=== PATIENT | female | born 1965 | race Caucasian/White ===

== ENCOUNTER → 2020-06-13 | Outpatient (CLI) | payer OTHER | LOC: LAB 17:53 | DX: I12.9 Hypertensive chronic kidney disease with stage 1 through stage 4 chronic kidney disease, or unspecified chronic kidney disease (principal); N18.4 Chronic kidney disease, stage 4 (severe); N39.0 Urinary tract infection, site not specified; Z94.0 Kidney transplant status; E78.5 Hyperlipidemia, unspecified; Z79.899 Other long term (current) drug therapy; M10.9 Gout, unspecified; Q87.81 Alport syndrome | CPT/HCPCS: 81001; 87077; 87086; 87186 ==

== ENCOUNTER → 2020-09-02 | Outpatient (CLI) | payer MEDICARE | LOC: LAB 10:08 | PROVIDERS: Internal Medicine Nephrology | DX: Z48.22 Encounter for aftercare following kidney transplant (principal); Z79.899 Other long term (current) drug therapy | CPT/HCPCS: 36415; 80069 ==

== ENCOUNTER → 2020-09-05 | Outpatient (CLI) | payer MEDICARE ==
[2020-09-05 18:23] LABS: BUN/CREATININE RATIO 15 (0-10)
== END ==
LOC: LAB 16:13
PROVIDERS: Internal Medicine
DX: Z48.22 Encounter for aftercare following kidney transplant (principal); Z94.0 Kidney transplant status; Z79.899 Other long term (current) drug therapy
CPT/HCPCS: 36415; 80069

== ENCOUNTER → 2021-03-03 | Outpatient (CLI) | payer MEDICARE | LOC: LAB 10:00 | PROVIDERS: Internal Medicine | DX: Z48.22 Encounter for aftercare following kidney transplant (principal); Z79.899 Other long term (current) drug therapy | CPT/HCPCS: 36415; 80069 ==